=== PATIENT | male | born 1940 | race Caucasian/White ===

== ENCOUNTER → 2017-08-28 | Outpatient (CLI) | payer MEDICARE, BC | END | disposition home or self-care (01) | LOC: HKI 09:41 | DX: M17.11 Unilateral primary osteoarthritis, right knee (principal) | CPT/HCPCS: 87081; G0463 ==

== ENCOUNTER 2017-09-07 10:56 | Observation (INO) | payer MEDICARE, BC ==
[~2017-09-07 10:56] MED LIST: CEFAZOLIN 2 GM/50 ML (PMX) 50 ML (FOR WT < 120 KG) IVPB; TRANEXAMIC ACID 1,000 MG in D5W 100 ML AT CLOSURE X1 IVPB; TRANEXAMIC ACID 1,000 MG in D5W 100 ML AT INCISION X1 IVPB
[2017-09-07] MEDS: LANSOPRAZOLE 30 MG CAP PO (13:48)
[2017-09-07] MEDS: ACETAMINOPHEN 1000MG/100ML IV 100 ML IVPB (13:48)
[2017-09-07] MEDS: DEXAMETHASONE 4 MG/ML 1 ML INJ IV (13:48)
[2017-09-07] MEDS: ONDANSETRON 4 MG INJ IV ×3 (13:49→21:34)
[2017-09-07] MEDS ORDERED: BISACODYL 10 MG SUPP PR (14:00)
[2017-09-07] MEDS ORDERED: DIPHENHYDRAMINE 50 MG INJ IV ×2 (14:00→18:00)
[2017-09-07] MEDS ORDERED: oxyCODONE 5 MG TAB PO (14:00)
[2017-09-07] MEDS ORDERED: NALOXONE (0.4 MG/ML) INJ IV (14:00)
[2017-09-07] MEDS ORDERED: NA PHOSPHATE/BIPHOS 133 ML ENEMA PR (14:00)
[2017-09-07] MEDS ORDERED: MAGNESIUM HYDROXIDE 30ML CUP PO (14:00)
[2017-09-07] MEDS ORDERED: BETHANECHOL 25 MG TAB PO (14:00)
[2017-09-07] MEDS ORDERED: MIDAZOLAM 1 MG/ML 2 ML INJ (16:37)
[2017-09-07] MEDS ORDERED: BUPIVACAINE 0.75%/DEXT (SPINAL) 2 ML INJ (16:38)
[2017-09-07] MEDS ORDERED: METOCLOPRAMIDE 10 MG INJ (16:38)
[2017-09-07] MEDS ORDERED: FENTAnyl 50 MCG/ML VIAL (16:47)
[2017-09-07] MEDS ORDERED: ETOMIDATE 20 MG INJ (16:47)
[2017-09-07] MEDS: CEFAZOLIN 1 GM/50 ML (PMX) 50 ML IVPB ×2 (16:56→21:34)
[2017-09-07] MEDS ORDERED: CEFAZOLIN 1 GM INJ (17:01)
[2017-09-07] MEDS ORDERED: ONDANSETRON 4 MG INJ (17:02)
[2017-09-07] MEDS ORDERED: ROPIVACAINE 0.2% 20 ML VIAL ×2 (17:04→18:41)
[2017-09-07] MEDS: POLYMYXIN B 500000 UNIT INJ (17:29)
[2017-09-07] MEDS: BACITRACIN 50000 UNITS INJ (17:29)
[2017-09-07] MEDS ORDERED: MEPERIDINE 25 MG INJ IV (18:00)
[2017-09-07] MEDS ORDERED: hydrALAzine 20 MG INJ IV (18:00)
[2017-09-07] MEDS ORDERED: LABETALOL HCL 20MG INJ IV (18:00)
[2017-09-07] MEDS ORDERED: ONDANSETRON 4 MG INJ IV (18:00)
[2017-09-07] MEDS ORDERED: HYDROmorphONE 1 MG/5 ML IV SYRINGE IV ×3 (18:00)
[2017-09-07] MEDS ORDERED: EPHEDrine SULFATE 50 MG/5 ML SYG IV (18:00)
[2017-09-07] MEDS ORDERED: EPHEDrine SULFATE 50 MG/5 ML SYG (18:13)
[2017-09-07] MEDS: ASPIRIN (EC) 325 MG TAB PO (19:15)
[2017-09-07] MEDS: DOCUSATE SODIUM 100 MG CAP PO (19:16)
[2017-09-07] MEDS: SOD CHLORIDE 0.9% 1,000 ML IV (19:17)
[2017-09-07] MEDS: LACTATED RINGER'S 1,000 ML IV (20:00)
[2017-09-07] MEDS ORDERED: CELECOXIB 100 MG CAP PO (21:00)
[2017-09-07] MEDS ORDERED: GABAPENTIN 100 MG CAP PO (21:00)
[2017-09-08] MEDS: SOD CHLORIDE 0.9% 1,000 ML IV ×2 (02:02→05:26)
[2017-09-08] MEDS: oxyCODONE 5 MG TAB PO ×4 (02:28→21:11)
[2017-09-08] MEDS: ONDANSETRON 4 MG INJ IV ×2 (02:28→08:13)
[2017-09-08] MEDS: CEFAZOLIN 1 GM/50 ML (PMX) 50 ML IVPB (05:27)
[2017-09-08 05:37] LABS: ADD MAN DIFF? NO
[2017-09-08 05:50] LABS: BASOPHILS % 0.1 % (0.0-2.0); HEMATOCRIT 31.4 % (42.0-52.0); HEMOGLOBIN 10.3 g/dl (14.0-18.0); LYMPHOCYTES # 1.4 10^3/ul (0.8-2.9); LYMPHOCYTES % 13.8 % (15.0-51.0); MEAN CORPUSCULAR HEMOGLOBIN 29.2 pg (29.0-33.0); MEAN CORPUSCULAR HGB CONC 32.8 g/dl (32.0-37.0); MEAN PLATELET VOLUME 10.7 fl (7.4-10.4); MONOCYTE # 0.8 10^3/ul (0.3-0.9); MONOCYTES % 7.8 % (0.0-11.0); NEUTROPHIL # 7.9 10^3/ul (1.6-7.5); NEUTROPHILS % 77.9 % (39.0-77.0); PLATELET COUNT 182 10^3/UL (140-415); RED BLOOD COUNT 3.53 10^6/ul (4.70-6.10); RED CELL DISTRIBUTION WIDTH 17.8 % (11.5-14.5)
[2017-09-08 05:50] LABS: WHITE BLOOD COUNT 10.2 10^3/ul (4.8-10.8)
[2017-09-08 06:19] LABS: ANION GAP 9 (8-16); BLOOD UREA NITROGEN 21 mg/dl (7-20); CALCIUM 8.4 mg/dl (8.4-10.2); CARBON DIOXIDE 22 mmol/L (21-31); CHLORIDE 110 mmol/L (97-110); CREATININE 1.03 mg/dl (0.61-1.24); GLUCOSE 111 mg/dl (70-220); SODIUM 136 mmol/L (135-144)
[2017-09-08] MEDS: LACTATED RINGER'S 1,000 ML IV (07:00)
[2017-09-08] MEDS: CELECOXIB 100 MG CAP PO ×2 (08:13→21:07)
[2017-09-08] MEDS: DOCUSATE SODIUM 100 MG CAP PO ×2 (08:14→21:07)
[2017-09-08] MEDS: GABAPENTIN 100 MG CAP PO ×2 (08:14→21:07)
[2017-09-08] MEDS: FERROUS FUMARATE (SR) TAB PO ×2 (08:14→21:07)
[2017-09-08] MEDS: ASPIRIN (EC) 325 MG TAB PO (08:14)
[2017-09-08 13:31] LABS: ADD UMIC NO; UR ASCORBIC ACID NEGATIVE (NEGATIVE); UR BILIRUBIN (Dip) NEGATIVE (NEGATIVE); UR BLOOD (Dip) NEGATIVE (NEGATIVE); UR CLARITY CLEAR (CLEAR); UR COLOR YELLOW (YELLOW); UR GLUCOSE (Dip) NEGATIVE (NEGATIVE); UR KETONES (Dip) TRACE mg/dL (NEGATIVE); UR LEUKOCYTE ESTERASE (Dip) NEGATIVE Leu/ul (NEGATIVE); UR NITRITE (Dip) NEGATIVE (NEGATIVE); UR SPECIFIC GRAVITY (Dip) 1.029 (1.003-1.030); UR TOTAL PROTEIN (Dip) NEGATIVE (NEGATIVE); UR UROBILINOGEN (Dip) NEGATIVE (NEGATIVE)
[2017-09-09] MEDS: oxyCODONE 5 MG TAB PO ×2 (02:39→08:03)
[2017-09-09 05:33] LABS: ADD MAN DIFF? NO
[2017-09-09] MEDS: PANTOPRAZOLE (EC) 40 MG TAB PO (05:34)
[2017-09-09 05:40] LABS: BASOPHIL # 0.1 10^3/ul (0.0-0.1); BASOPHILS % 0.7 % (0.0-2.0); EOSINOPHILS # 0.2 10^3/ul (0.0-0.5); EOSINOPHILS % 2.6 % (0.0-7.0); HEMATOCRIT 30.6 % (42.0-52.0); HEMOGLOBIN 9.7 g/dl (14.0-18.0); LYMPHOCYTES % 35.5 % (15.0-51.0); MEAN CORPUSCULAR HGB CONC 31.7 g/dl (32.0-37.0); MEAN CORPUSCULAR VOLUME 91.3 fl (82.0-101.0); MONOCYTE # 1.1 10^3/ul (0.3-0.9); PLATELET COUNT 171 10^3/UL (140-415); RED BLOOD COUNT 3.35 10^6/ul (4.70-6.10); RED CELL DISTRIBUTION WIDTH 18.5 % (11.5-14.5)
[2017-09-09 05:40] LABS: WHITE BLOOD COUNT 8.4 10^3/ul (4.8-10.8)
[2017-09-09 06:20] LABS: ANION GAP 9 (8-16); BLOOD UREA NITROGEN 22 mg/dl (7-20); CARBON DIOXIDE 26 mmol/L (21-31); CHLORIDE 109 mmol/L (97-110); CREATININE 1.17 mg/dl (0.61-1.24); GLUCOSE 93 mg/dl (70-220); POTASSIUM 4.8 mmol/L (3.5-5.1); SODIUM 139 mmol/L (135-144)
[2017-09-09] MEDS: SENNA/DOCUSATE NA (8.6MG/50MG) TAB PO (08:03)
[2017-09-09] MEDS: CELECOXIB 100 MG CAP PO (08:03)
[2017-09-09] MEDS: DOCUSATE SODIUM 100 MG CAP PO (08:04)
[2017-09-09] MEDS: FERROUS FUMARATE (SR) TAB PO (08:04)
[2017-09-09] MEDS: GABAPENTIN 100 MG CAP PO (08:04)
[2017-09-09] MEDS: ASPIRIN (EC) 325 MG TAB PO (08:05)
[2017-09-09] MEDS: ACETAMINOPHEN 325 MG TAB PO (10:08)
== END 2017-09-09 14:15 | disposition home health service (06) ==
LOC: REC 10:56 → MS1 20:11
DX: M17.11 Unilateral primary osteoarthritis, right knee (principal); I25.10 Atherosclerotic heart disease of native coronary artery without angina pectoris; Z95.5 Presence of coronary angioplasty implant and graft
CPT/HCPCS: 27447; 73560; 80048; 81003; 85025; 86850; 86900; 86901; 87081; 87086; 88304; 88311; 97110; 97116; 97161; 97167; 97530; 99217

== ENCOUNTER → 2017-09-18 | Outpatient (CLI) | payer MEDICARE, BC | END | disposition home or self-care (01) | LOC: HKI 08:26 | DX: Z09 Encounter for follow-up examination after completed treatment for conditions other than malignant neoplasm (principal); Z96.651 Presence of right artificial knee joint | CPT/HCPCS: 73560; 73560-RT ==

== ENCOUNTER → 2017-10-10 | Outpatient (CLI) | payer MEDICARE, BC | END | disposition home or self-care (01) | LOC: HKI 13:01 | DX: Z47.1 Aftercare following joint replacement surgery (principal); Z96.651 Presence of right artificial knee joint | CPT/HCPCS: 72170; 73560-RT ==